=== PATIENT | male | born 1980 | race Caucasian/White ===

== ENCOUNTER 2020-06-09 13:03 | Inpatient (IN) | payer OTHER ==
[~2020-06-09] VITALS: Ht 188 cm; Wt 111.8 kg
[2020-06-09] MEDS ORDERED: SODIUM CHLORIDE 0.9% 1,000ML IVBOLUS ONE (13:30)
[2020-06-09] MEDS ORDERED: ONDANSETRON 2MG/ML, 2ML IVPush ONE (13:30)
[2020-06-09 13:48] LABS: MEAN CORPUSCULAR HEMOGLOBIN 32.8 pg (27.5-34.5); MEAN CORPUSCULAR HGB CONC 32.9 g/dL (33.2-36.2); MEAN CORPUSCULAR VOLUME 99.6 fL (81-97); MEAN PLATELET VOLUME 8.9 fL (7.4-10.4); PLATELET COUNT 201 x10^3/uL (130-400); RED BLOOD COUNT 4.64 x10^6/uL (4.38-5.82); RED CELL DISTRIBUTION WIDTH 13.7 % (9.4-14.8)
[2020-06-09 13:53] LABS: ALBUMIN 3.2 g/dL (3.4-5.0); ANION GAP 8 mmol/L (5-15); CHLORIDE 106 mmol/L (98-107)
[2020-06-09] MEDS ORDERED: ONDANSETRON 2MG/ML, 2ML ONE ×2 (13:53→15:24)
[2020-06-09] MEDS ORDERED: MORPHINE SULFATE 4 MG/ML, 1ML ONE ×2 (13:54→15:24)
[2020-06-09 13:57] LABS: ALANINE AMINOTRANSFERASE 51 U/L (12-78); ALKALINE PHOSPHATASE 76 U/L (45-117); BILIRUBIN,TOTAL 0.5 mg/dL (0.2-1.0); CREATININE 0.95 mg/dL (0.7-1.3)
--- NOTE | 2020-06-09 14:04 | NUR ---
First contact with pt. Pt c/o intermittent diffuse low abd pain with N/V x2 days. Pt states he is not currently nauseated or having pain. Pt resting in bed watching video on his phone, NADN. PIV inserted and IVF initiated per JAN. Continuous oxygen and BP monitor applied, all safety measures observed.
--- NOTE | 2020-06-09 14:22 | NUR ---
Report to Acosta MIRZA.
--- NOTE | 2020-06-09 14:30 | NUR ---
CT CALLED TO [facility]. PRACTICING DERMATOLOGIST REPORTS PATIENT 2ND IN LINE FOR TEST
[2020-06-09 14:55] LABS: MD YES
[2020-06-09 14:59] LABS: <PLATELET ESTIMATE> ADEQUATE; <RBC MORPHOLOGY> NORMAL; BAND#(MANUAL) 0.16 x10^3/uL; BANDS%(MANUAL) 1 % (0-7); LYMPH#(MANUAL) 2.36 x10^3/uL (1-3.4); LYMPHS% (MANUAL) 15 % (22-44); MONOS#(MANUAL) 1.26 x10^3/uL (0.3-2.7); MONOS% (MANUAL) 8 % (2-9); SEG#(MANUAL) 11.93 x10^3/uL (1.8-6.8); SEGS% (MANUAL) 76 % (42-75)
[2020-06-09 15:00] LABS: LARGE PLATELETS 1+
[2020-06-09] MEDS ORDERED: OMNIPAQUE 350 MG/ML, 100ML BOTTLE ONE (15:03)
--- NOTE | 2020-06-09 15:11 | NUR ---
DESPITE REDIRECTION PATIENT REFUSING MORPHINE/ZOFRAN REPORT TO ELVIA MIRZA
--- NOTE | 2020-06-09 15:12 | NUR ---
REPORT RECEIVED FROM YUKI MUSE
--- NOTE | 2020-06-09 15:28 | NUR ---
PATIENT DOES NOT WISH TO RECEIVED MORPHINE FOR PAIN, MD AWARE. WAITING FOR CT RESULTS FOR FURTHER TX AND PLAN OF CARE
[2020-06-09] MEDS ORDERED: PIPERACILLIN/TAZO/PMX 4.5GM 100 ML IV ONE (16:00)
--- NOTE | 2020-06-09 16:25 | NUR ---
CALLED PHARMACY TWICE TO GET [facility] SENT
[2020-06-09] MEDS: MORPHINE SULFATE 4 MG/ML, 1ML IVPush PRN (16:39)
[2020-06-09] MEDS ORDERED: OXYcodone/APAP 7.5/325MG TABLET ONE (16:40)
--- NOTE | 2020-06-09 16:45 | NUR ---
ZOSYN STARTED AT THIS TIME. NO ORDERS FOR CULTURES PRIOR TO ADMIN.
[2020-06-09] MEDS ORDERED: hydrALAzine 20 MG/ML, 1ML IVPush PRN (17:00)
[2020-06-09] MEDS: NICOTINE 14MG/24 HR PATCH.TD24 TD SCH (17:00)
[2020-06-09] MEDS ORDERED: OXYcodone/APAP 7.5/325MG TABLET PO ONE (17:00)
[2020-06-09] MEDS ORDERED: ONDANSETRON 2MG/ML, 2ML IVPush PRN (17:00)
[2020-06-09] MEDS ORDERED: LORazepam 2 MG/ML, 1ML IM PRN (17:00)
[2020-06-09] MEDS ORDERED: ACETAMINOPHEN 325 MG TABLET PO PRN (17:00)
--- NOTE | 2020-06-09 17:00 | NUR ---
ORDERS FOR BLOOD CULTURES PLACED BY ADMITTING MD AFTER ZOSYN ALREADY GIVEN PER ERP ORDERS.
--- NOTE | 2020-06-09 18:16 | NUR ---
REPORTGIVEN TO YUKI ECHOLS. PLAN OF CARE DISCUSSED
[2020-06-09 18:42] VITALS: BP 133/88
[2020-06-09] MEDS: SODIUM CHLORIDE 0.9% 1,000 ML IV SCH (19:38)
[2020-06-09] MEDS: HYDROmorphone 2 MG/ML, 1ML IVPush PRN ×2 (19:39→22:38)
[2020-06-09] MEDS: PIPERACILLIN/TAZO/PMX 3.375GM 50 ML IV SCH (22:37)
[2020-06-09] MEDS: FAMOTIDINE 20 MG/2 ML IVPush SCH (22:38)
[2020-06-09 23:11] LABS: MICROSCOPIC NOT IND
[2020-06-10 00:45] VITALS: BP 118/73
[2020-06-10] MEDS ORDERED: DIPHENHYDRAMINE 50 MG/ML, 1ML IVPush ONE (01:00)
[2020-06-10] MEDS ORDERED: DIPHENHYDRAMINE 50 MG/ML, 1ML ONE (01:09)
[2020-06-10] MEDS: HYDROmorphone 2 MG/ML, 1ML IVPush PRN (01:37)
[2020-06-10 04:04] LABS: ALBUMIN 2.7 g/dL (3.4-5.0); ANION GAP 8 mmol/L (5-15); CALCIUM 8.2 mg/dL (8.5-10.1); CHLORIDE 106 mmol/L (98-107)
[2020-06-10 04:05] LABS: MEAN CORPUSCULAR HEMOGLOBIN 32.8 pg (27.5-34.5); MEAN CORPUSCULAR HGB CONC 33.2 g/dL (33.2-36.2); MEAN PLATELET VOLUME 9.6 fL (7.4-10.4); PLATELET COUNT 174 x10^3/uL (130-400); RED BLOOD COUNT 4.34 x10^6/uL (4.38-5.82); RED CELL DISTRIBUTION WIDTH 13.6 % (9.4-14.8)
[2020-06-10 04:08] LABS: ALANINE AMINOTRANSFERASE 36 U/L (12-78); ALKALINE PHOSPHATASE 67 U/L (45-117); BILIRUBIN,TOTAL 0.8 mg/dL (0.2-1.0); CREATININE 0.91 mg/dL (0.7-1.3); TOTAL PROTEIN 7.2 g/dL (6.4-8.2)
[2020-06-10 05:10] LABS: MD YES
[2020-06-10 05:18] LABS: <PLATELET ESTIMATE> ADEQUATE; <PLT MORPHOLOGY> NORMAL PLT MORPH; <RBC MORPHOLOGY> NORMAL; BAND#(MANUAL) 0.34 x10^3/uL; BANDS%(MANUAL) 2 % (0-7); BASOS#(MANUAL) 0.17 x10^3/uL (0-0.1); BASOS% (MANUAL) 1 % (0-1); LYMPH#(MANUAL) 4.54 x10^3/uL (1-3.4); LYMPHS% (MANUAL) 27 % (22-44); MONOS#(MANUAL) 1.01 x10^3/uL (0.3-2.7); MONOS% (MANUAL) 6 % (2-9); SEG#(MANUAL) 10.75 x10^3/uL (1.8-6.8); SEGS% (MANUAL) 64 % (42-75)
[2020-06-10] MEDS: SODIUM CHLORIDE 0.9% 1,000 ML IV SCH ×2 (06:06→15:35)
[2020-06-10] MEDS: PIPERACILLIN/TAZO/PMX 3.375GM 50 ML IV SCH ×3 (06:06→22:41)
[2020-06-10] MEDS: MORPHINE SULFATE 4 MG/ML, 1ML IVPush PRN ×4 (06:15→21:33)
[2020-06-10 07:13] VITALS: BP 125/74
[2020-06-10] MEDS: THIAMINE 100 MG/ML, 2ML IM SCH (09:00)
[2020-06-10] MEDS: FOLIC ACID 1 MG TABLET PO SCH ×2 (09:00→10:41)
[2020-06-10] MEDS: FAMOTIDINE 20 MG/2 ML IVPush SCH ×2 (10:39→20:18)
[2020-06-10] MEDS: NICOTINE 14MG/24 HR PATCH.TD24 TD SCH (10:44)
[2020-06-10 13:26] VITALS: BP 126/79
[2020-06-10 20:28] VITALS: BP 131/80
[2020-06-10] MEDS: OXYcodone/APAP 5/325MG TABLET PO PRN (22:42)
[2020-06-11 01:28] VITALS: BP 127/75
[2020-06-11] MEDS: MORPHINE SULFATE 4 MG/ML, 1ML IVPush PRN (01:33)
[2020-06-11] MEDS: SODIUM CHLORIDE 0.9% 1,000 ML IV SCH ×2 (01:33→11:26)
[2020-06-11] MEDS: OXYcodone/APAP 5/325MG TABLET PO PRN ×2 (05:37→12:35)
[2020-06-11] MEDS: PIPERACILLIN/TAZO/PMX 3.375GM 50 ML IV SCH ×2 (06:16→14:29)
[2020-06-11 06:34] VITALS: BP 121/78
[2020-06-11] MEDS: FOLIC ACID 1 MG TABLET PO SCH (07:47)
[2020-06-11] MEDS: THIAMINE 100 MG/ML, 2ML IM SCH (09:00)
[2020-06-11] MEDS: FAMOTIDINE 20 MG/2 ML IVPush SCH (10:44)
[2020-06-11] MEDS: NICOTINE 14MG/24 HR PATCH.TD24 TD SCH (12:35)
[2020-06-11] MEDS ORDERED: OMNIPAQUE 350 MG/ML, 100ML BOTTLE ONE (12:49)
[2020-06-11 15:00] VITALS: BP 128/72
[2020-06-11 16:25] LABS: ALANINE AMINOTRANSFERASE 29 U/L (12-78); ALBUMIN 2.7 g/dL (3.4-5.0); ANION GAP 5 mmol/L (5-15); CALCIUM 8.8 mg/dL (8.5-10.1); CHLORIDE 106 mmol/L (98-107); CREATININE 0.78 mg/dL (0.7-1.3)
[2020-06-11 16:27] LABS: ALKALINE PHOSPHATASE 74 U/L (45-117); BILIRUBIN,TOTAL 0.5 mg/dL (0.2-1.0); TOTAL PROTEIN 7.4 g/dL (6.4-8.2)
[2020-06-11 16:37] LABS: MEAN CORPUSCULAR HEMOGLOBIN 32.6 pg (27.5-34.5); MEAN CORPUSCULAR VOLUME 98.6 fL (81-97); MEAN PLATELET VOLUME 8.6 fL (7.4-10.4); PLATELET COUNT 188 x10^3/uL (130-400); RED BLOOD COUNT 4.14 x10^6/uL (4.38-5.82); RED CELL DISTRIBUTION WIDTH 13.4 % (9.4-14.8)
[2020-06-11 16:41] LABS: BASOPHILS # (AUTO) 0.02 x10^3/uL (0-0.1); BASOPHILS % (AUTO) 0 % (0-1); EOSINOPHILS # (AUTO) 0.17 x10^3/uL (0-0.4); EOSINOPHILS % (AUTO) 2 % (1-7); LYMPHOCYTES # (AUTO) 1.98 x10^3/uL (1-3.4); LYMPHOCYTES % (AUTO) 21 % (22-44); MD SCAN; MONOCYTES # (AUTO) 0.78 x10^3/uL (0.2-0.8); MONOCYTES % (AUTO) 8 % (2-9); NEUTROPHILS # (AUTO) 6.47 x10^3/uL (1.8-6.8); NEUTROPHILS % (AUTO) 69 % (42-75)
[2020-06-11] MEDS ORDERED: LEVO750T26 PO (18:06)
[2020-06-11] MEDS ORDERED: METR500T PO (18:06)
[2020-06-11] MEDS ORDERED: FAMOTIDINE 20 MG TABLET PO SCH (21:00)
== END 2020-06-11 18:30 | disposition home or self-care (01) | DRG 391 ==
LOC: ED 13:25 → EDIP 15:51 → 3N 18:39
PROVIDERS: ADMIT Hospitalist; ATTEND Internal Medicine
DX: K57.20 Diverticulitis of large intestine with perforation and abscess without bleeding (principal); K65.9 Peritonitis, unspecified; F17.200 Nicotine dependence, unspecified, uncomplicated; F10.20 Alcohol dependence, uncomplicated; E66.9 Obesity, unspecified; Z79.899 Other long term (current) drug therapy; Z68.31 Body mass index [BMI] 31.0-31.9, adult
CPT/HCPCS: 36415; J3490; 74177; 80053; 81003; 83690; 83735; 84100; 85025; 87040; G0378; J1170; J2543; J3411; Q9967; J1200; J2270; J7030